=== PATIENT | female | born 1970 | race Caucasian/White ===

== ENCOUNTER 2019-03-13 11:39 | Inpatient (IN) | payer OTHER ==
[2019-03-13 13:40] VITALS: BMI 27.6
--- NOTE | 2019-03-13 14:27 | HP ---
COWS - Scale Resting Pulse: 1= [place] 81-100 Sweatin= No chills or Flushing Restless Observation: 0= Sits Still Pupil Size: 0= Normal to Room Light Bone or Joint Aches: 2= Severe Diffuse Aches Runny Nose/ Eye Tearin= Runny Nose/Eyes GI Upset > 30mins: 0= None Tremor Observation: 0= None Yawning Observation: 2= >3x During Session Anxiety or Irritability: 1=Feels Anxious/Irritable Goose Flesh Skin: 3=Piloerection COWS Score: 11 CIWA Score - Admission Criteria [facility] Guidelines: Admission for Medically Managed Detox: Requires at least one of the followin. CIWA greater than 12 2. Seizures within the past 24 hours 3. Delirium tremens within the past 24 hours 4. Hallucinations within the past 24 hours 5. Acute intervention needed for co occurring medical disorder 6. Acute intervention needed for co occurring psychiatric disorder 7. Severe withdrawal that cannot be handled at a lower level of care (continued vomiting, continued diarrhea, abnormal vital signs) requiring intravenous medication and/or fluids 8. Admission [facility] Chief Complaint: 48 y/o F with PMH hepatitis C (last VL undetectable, not on tx), here to detox from heroin. Allergies/Adverse Reactions: Allergies Allergy/AdvReac Type Severity Reaction Status Date / Time No Known Allergies Allergy Verified 03/13/19 13:34 History of Present Illness: 48 y/o F with PMH hepatitis C (last VL undetectable, not on tx), here to detox from heroin. States that she last used last night; 3 bags worth over the course of the day . Used via IVDA into her R antecubital fossa. Never injects elsewhere. Has never had an abscess. Has never had hx endocarditis. Longest sobriety 1 yr [address] mandated by [address] for drug sale. Homelessness has triggered her and caused her to relapse. Heroin makes her feel calm. Was in a methadone program on [facility] 50mg qd for 3 yrs. Just came off it in October, completed program and was taken off it for administrative reasons. Tried suboxone years ago and it was effective but gave her panic attacks. Has also used cocaine every other week; smokes $50 worth at a time. Never IVDA. Uses marijuana 1 joint every few months. Was detox for heroin at [facility] "a few yrs ago." Was also detox at [facility] >20 yrs ago; chart is not in computer. Plans to go to long -term rehab once she is done with detox. 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 smokes 1 ppd x 20 yrs. denies alcohol use, or other ingestions. Exam Limitations: No Limitations - Ebola screening Have you traveled outside of the country in the last 21 days: No Have you had contact with anyone from an Ebola affected area: No Do you have a fever: No - Review of Systems Constitutional: Weakness EENT: reports: Tearing, Nose Congestion Respiratory: reports: No Symptoms reported Cardiac: reports: No Symptoms Reported GI: reports: No Symptoms Reported : reports: No Symptoms Reported Musculoskeletal: reports: Joint Pain, Muscle Pain, Muscle Weakness Integumentary: reports: No Symptoms Reported Neuro: reports: Headache Endocrine: reports: No Symptoms Reported Hematology: reports: No Symptoms Reported Psychiatric: reports: No Sypmtoms Reported Patient History - Patient Medical History Hx Anemia: No Hx Asthma: No Hx Chronic Obstructive Pulmonary Disease (COPD): No Hx Cancer: No Hx Cardiac Disorders: No Hx Congestive Heart Failure: No Hx Hypertension: No Hx Hypercholesterolemia: No Hx Pacemaker: No HX Cerebrovascular Accident: No Hx Seizures: No Hx Dementia: No Hx Diabetes: No Hx Gastrointestinal Disorders: No Hx Liver Disease: No Hx Sexually Transmitted Disorders: No Hx Renal Disease (ESRD): No Hx Human Immunodeficiency Virus (HIV): No Hx Hepatitis C: Yes Hx Depression: No Hx Suicide Attempt: No Hx Bipolar Disorder: No Hx Schizophrenia: No - Patient Surgical History Past Surgical History: No Hx Neurologic Surgery: No Hx Cataract Extraction: No Hx Cardiac Surgery: No Hx Lung Surgery: No Hx Breast Surgery: No Hx Breast Biopsy: No Hx Abdominal Surgery: No Hx Appendectomy: No Hx Cholecystectomy: No Hx Genitourinary Surgery: No Hx Section: No Hx Orthopedic Surgery: No Hx Hysterectomy: No Anesthesia Reaction: No - Smoking Cessation Smoking history: Current every day smoker Have you smoked in the past 12 months: Yes Aproximately how many cigarettes per day: 20 Initiated information on smoking cessation: Yes 'Breaking Loose' booklet given: 03/13/19 - Substances abused Heroin Substance route: Injection Frequency: Daily Amount used: 3BAGS Age of first use: 19 Date of last use: 03/12/19 Family Disease History - Family Disease History Family Disease History: CA: Grandparent (breast CA ), Mother (lung CA ) Admission Physical Exam [facility] - Vital Signs Vital Signs: Vital Signs - 24 hr 03/13/19 13:36 Temperature 96.9 F L Pulse Rate 95 H Respiratory 18 Rate Blood Pressure 108/71 - Physical General Appearance: Yes: Within Normal Limits, Irritable (+lethargic), Other HEENTM: Yes: Within Normal Limits Respiratory: Yes: Within Normal Limits, Other (+increased expiratory phase) Neck: Yes: Within Normal Limits Breast: Yes: Breast Exam Deferred Cardiology: Yes: Regular Rhythm, Regular Rate, S1, S2 Abdominal: Yes: Non Tender Genitourinary: Yes: Within Normal Limits Back: Yes: Within Normal Limits Musculoskeletal: Yes: full range of Motion Extremities: Yes: Within Normal Limits, Other (+track partida RUE) Neurological: Yes: client leader II-XII NML intact Integumentary: Yes: Within Normal Limits Lymphatic: Yes: Within Normal Limits - Diagnostic (1) Hepatitis C Current Visit: Yes Status: Chronic (2) Heroin withdrawal Current Visit: Yes Status: Acute (3) Nicotine dependence Current Visit: Yes Status: Chronic (4) IVDU (intravenous drug user) Current Visit: Yes Status: Chronic (5) Dehydration Current Visit: Yes Status: Acute Cleared for Admission [facility] - Detox or Rehab [facility] Level of Care: Medically Managed Detox Regimen/Protocol: Methadone Breathalyzer - Breathalyzer Breathalyzer: 0 Urine Drug Screen - Test Device Lot number: [id number] Expiration date: 12/31/20 - Control Is test valid?: Yes - Results Drug screen NEGATIVE: No Urine drug screen results: THC-Marijuana, MOP-Opiates Inpatient Rehab Admission - Rehab Decision to Admit Inpatient rehab admission?: No
[2019-03-13] MEDS ORDERED: cloNIDine HCL 0.1 MG TABLET PO PRN (15:04)
[2019-03-13] MEDS ORDERED: MAG HYDROX/AL HYDROX/SIMETH 30 ML UNIT-DOSE CUP PO PRN (15:05)
[2019-03-13] MEDS ORDERED: BISMUTH SUBSALICYLATE 262 MG/15 ML BTL PO PRN (15:05)
[2019-03-13] MEDS ORDERED: MENTHOL/PHENOL 1 EACH UD MM PRN (15:05)
[2019-03-13] MEDS ORDERED: ACETAMINOPHEN 325 MG TABLET (FP) PO PRN (15:05)
[2019-03-13] MEDS ORDERED: MAGNESIUM HYDROX 2400MG/30ML ORAL SUSPENSION 30 ML CUP PO PRN (15:05)
[2019-03-13] MEDS ORDERED: MELATONIN 5 MG TABLETS PO PRN (15:05)
[2019-03-13] MEDS ORDERED: IBUPROFEN 400 MG TABLET (FP) PO PRN (15:05)
[2019-03-13] MEDS ORDERED: METHADONE HCL 5 MG TABLET (FOR DETOX USE ONLY) PO ONE (15:50)
[2019-03-13 16:52] LABS: HEMATOCRIT 41.1 % (32.4-45.2); HEMOGLOBIN 14.1 GM/dL (10.7-15.3); MCHC 34.2 g/dl (32.0-36.0); MEAN CELL VOLUME 90.4 fl (80-96); MEAN PLT VOLUME 8.2 fl (7.5-11.1); PLATELET COUNT 281 K/MM3 (134-434); RBC 4.54 M/mm3 (3.60-5.2); RDW 13.7 % (11.6-15.6); WHITE BLOOD COUNT 9.2 K/mm3 (4.0-10.0)
[2019-03-13 16:54] LABS: ALBUMIN 3.6 g/dl (3.4-5.0); BILIRUBIN,TOTAL 0.2 mg/dL (0.2-1); BLOOD UREA NITROGEN 8.3 mg/dL (7-18); CALCIUM 9.2 mg/dL (8.5-10.1); CREATININE 0.8 mg/dL (0.55-1.3); TOT PROT 7.3 g/dl (6.4-8.2)
--- NOTE | 2019-03-13 19:38 | PN ---
Teaching Attending Note Name of Resident: Claudia Devine ATTENDING PHYSICIAN STATEMENT I saw and evaluated the patient. I reviewed the resident's note and discussed the case with the resident. I agree with the resident's findings and plan as documented. SUBJECTIVE: 48 y/o pt requesting detox from opiate use , reports 3 bags heroin daily IVDU r UE , denies OD/ abscess, longest sobriety [address] . prior mmtp x 5 years until Oct 2018 , administrative d/c . cocaine : every other week , 50 $ . cannabis : every few months tobacco 1 ppd x 20 yrs. 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 OBJECTIVE: wnwd , mild distress, irritable. current symptoms as above. ASSESSMENT AND PLAN: Opioid dependence - methadone taper .
[2019-03-13] MEDS: THIAMINE HCL 100 MG TABLET (FP) PO SCH (23:38)
[2019-03-14] MEDS ORDERED: METHADONE HCL 10 MG TABLET (FOR DETOX USE ONLY) PO ONE (10:00)
[2019-03-14] MEDS ORDERED: PRENATAL VITAMINS W/ FOLIC ACID TABLET (FP) PO SCH (10:00)
--- NOTE | 2019-03-14 12:22 | PN ---
[facility] COWS - Scale Resting Pulse: 0= [place] 80 or Below Sweatin= Chills/Flushing Restless Observation: 0= Sits Still Pupil Size: 0= Normal to Room Light Bone or Joint Aches: 1= Mild Discomfort Runny Nose/ Eye Tearin= Nasal Congestion GI Upset > 30mins: 0= None Tremor Observation of Outstretched Hands: 1= Tremor Pipestem, Not Seen Yawning Observation: 1= 1-2x During Session Anxiety or Irritability: 1=Feels Anxious/Irritable Goose Flesh Skin: 0=Smooth Skin COWS Score: 6 [facility] Progress Note (SOAP) Subjective: sweats agitation interrupted sleep Objective: 03/14/19 12:21 Vital Signs Temperature 97.7 F 03/14/19 09:55 Pulse Rate 76 03/14/19 09:55 Respiratory Rate 18 03/14/19 09:55 Blood Pressure 122/77 03/14/19 09:55 O2 Sat by Pulse Oximetry (%) Laboratory Tests 03/13/19 03/13/19 03/13/19 15:30 15:30 15:30 WBC 9.2 RBC 4.54 Hgb 14.1 Hct 41.1 MCV 90.4 MCH 31.0 MCHC 34.2 RDW 13.7 Plt Count 281 MPV 8.2 Sodium 142 Potassium 4.0 Chloride 108 H Carbon Dioxide 30 Anion Gap 5 L BUN 8.3 Creatinine 0.8 Est GFR (CKD-EPI)AfAm 99.63 Est GFR (CKD-EPI)NonAf 85.96 Random Glucose 88 Calcium 9.2 Total Bilirubin 0.2 AST 11 L ALT 16 Alkaline Phosphatase 76 Total Protein 7.3 Albumin 3.6 RPR Titer Nonreactive labs noted aaox3 ambulating no acute distress Assessment: 03/14/19 12:21 mild withdrawal sx Plan: continue detox increase fluids d/c in am
[2019-03-14] MEDS: THIAMINE HCL 100 MG TABLET (FP) PO SCH (23:45)
[2019-03-15 09:24] VITALS: BP 111/70; PULSE 79; TEMP 96.4
[2019-03-15] MEDS ORDERED: METHADONE HCL 5 MG TABLET (FOR DETOX USE ONLY) PO ONE (10:00)
--- NOTE | 2019-03-15 13:57 | DS ---
[facility] Detox Discharge Summary Admission Date: 03/13/19 Discharge Date: 03/15/19 - History Present History: Opioid Dependence Additional Comments: Pt is medically cleared and is discharged today. Pt completed her detox protocol. Pt is encouraged to follow-up with an outpatient CD program and also to follow-up with her PMD. Pt verbalized understanding. Pt is alert and oriented x3, in no respiratory distress. Pertinent Past History: H/O Hepc and heroin use disorder. - Physical Exam Results Vital Signs: Vital Signs Temperature 96.4 F L 03/15/19 09:15 Pulse Rate 79 03/15/19 09:15 Respiratory Rate 18 03/15/19 09:15 Blood Pressure 111/70 03/15/19 09:15 O2 Sat by Pulse Oximetry (%) Vital Signs 03/15/19 03/15/19 06:00 09:15 Temperature 97.5 F L 96.4 F L Pulse Rate 66 79 Respiratory 16 18 Rate Blood Pressure 116/69 111/70 Lab Results WBC 9.2 K/mm3 (4.0-10.0) 03/13/19 15:30 RBC 4.54 M/mm3 (3.60-5.2) 03/13/19 15:30 Hgb 14.1 GM/dL (10.7-15.3) 03/13/19 15:30 Hct 41.1 % (32.4-45.2) 03/13/19 15:30 MCV 90.4 fl (80-96) 03/13/19 15:30 MCHC 34.2 g/dl (32.0-36.0) 03/13/19 15:30 RDW 13.7 % (11.6-15.6) 03/13/19 15:30 Plt Count 281 K/MM3 (134-434) 03/13/19 15:30 Sodium 142 mmol/L (136-145) 03/13/19 15:30 Potassium 4.0 mmol/L (3.5-5.1) 03/13/19 15:30 Chloride 108 mmol/L (98-107) H 03/13/19 15:30 Carbon Dioxide 30 mmol/L (21-32) 03/13/19 15:30 Anion Gap 5 MMOL/L (8-16) L 03/13/19 15:30 BUN 8.3 mg/dL (7-18) 03/13/19 15:30 Creatinine 0.8 mg/dL (0.55-1.3) 03/13/19 15:30 Random Glucose 88 mg/dL (74-106) 03/13/19 15:30 Calcium 9.2 mg/dL (8.5-10.1) 03/13/19 15:30 Labs reviewed. Pertinent Admission Physical Exam Findings: withdrawal symptoms. - Treatment Hospital Course: Detox Protocol Followed, Detoxed Safely, Responded well, Discharged Condition Good - Medication Discharge Medications: Ambulatory Orders NK [No Known Home Medication] 03/13/19 - Diagnosis (1) Heroin withdrawal Status: Acute (2) Hepatitis C Status: Chronic (3) IVDU (intravenous drug user) Status: Chronic (4) Nicotine dependence Status: Chronic - AMA Did Patient Leave Against Medical Advice: No
== END 2019-03-15 09:22 | disposition home or self-care (01) | DRG 897 ==
LOC: YASAS 11:39 → Y6N 15:43
PROVIDERS: ADMIT Surgery; ATTEND Surgery
PROC: HZ2ZZZZ Detoxification Services for Substance Abuse Treatment (ICD-10-PCS; principal; 2019-03-13)
DX: F11.23 Opioid dependence with withdrawal (principal); F17.210 Nicotine dependence, cigarettes, uncomplicated; E86.0 Dehydration; B18.2 Chronic viral hepatitis C
CPT/HCPCS: 36415; 80053; 81025; 85027; 86480; 86593